=== PATIENT | female | born 1940 | race Caucasian/White ===

== ENCOUNTER 2017-06-19 18:29 | Inpatient (IN) | payer OTHER, MEDICAID ==
[~2017-06-19] VITALS: Ht 175.3 cm; Wt 83.9 kg
[2017-06-19] MEDS ORDERED: RIVA20TA PO (19:58)
[2017-06-19] MEDS ORDERED: TRAM-47 PO (19:58)
[2017-06-19] MEDS ORDERED: ATOR10TA PO (19:58)
[2017-06-19] MEDS ORDERED: SPIR25TA PO (19:58)
[2017-06-19] MEDS ORDERED: ASPI325T14 PO (19:58)
[2017-06-19] MEDS ORDERED: FURO-80 PO (19:58)
[2017-06-19] MEDS ORDERED: OLAN10TA9 PO (19:58)
[2017-06-19] MEDS ORDERED: CARV3.12 PO (19:58)
[2017-06-19] MEDS ORDERED: OXYB5TAB PO (19:58)
[2017-06-19] MEDS ORDERED: TIZA4TAB PO (19:58)
[2017-06-19 19:59] VITALS: BP_SYST 112; BP_SYST 143; BP_DIAS 58; BP_DIAS 92
[2017-06-19] MEDS ORDERED: HALDOL PO PRN (21:00)
[2017-06-19] MEDS: ZYPREXA ZYDIS SL SCH (21:43)
[2017-06-19] MEDS: LIPITOR PO SCH (21:43)
[2017-06-19] MEDS: COREG PO SCH (21:44)
[2017-06-20 08:16] VITALS: BP 132/86
[2017-06-20] MEDS: COREG PO SCH ×2 (09:48→20:29)
[2017-06-20] MEDS: ASPIRIN PO SCH (09:48)
[2017-06-20] MEDS: DITROPAN PO SCH ×2 (09:48→20:28)
[2017-06-20] MEDS: PROZAC PO SCH (09:49)
[2017-06-20] MEDS: XARELTO PO SCH (09:49)
[2017-06-20] MEDS: LASIX PO SCH (09:49)
[2017-06-20] MEDS: ULTRAM PO PRN (09:49)
[2017-06-20] MEDS: ALDACTONE PO SCH (09:49)
--- NOTE | 2017-06-20 10:01 | PRM.PN ---
Mood: DEPRESSED, GUARDED Sleep: SLEPT 6.25 HOURS LAST NIGHT Appetite: NORMAL APPETITE, OVERWEIGHT Suidical thoughts: NONE REPORTED Homicidal thoughts: NONE REPORTED Recent stressors: STRESS OF MENTAL ILLNESS Family support: DAUGHTERS Aggressive Behavior: NONE REPORTED Ability to Perform ADL'sc: YES Psychotic sympstoms: NEGATIVE SYMPTOMS, PARANOIA, DELUSIONAL THINKING Manic Symptoms: NONE REPORTED Living situation: LIVES AT HOME WITH 2 DAUGHTERS IN [place], [place] Illicit Drug usec: NONE REPORTED Alcoholo use: NONE REPORTED Tobacco use: NONE REPORTED Family,PT,Surgical,&Current HX: Anxity Symptoms: MODERATE ANXIETY LEVEL Anger/Irritablility: SOME IRRITABILITY Muscle Strength & Tone: WNL Gait & Station: WNL Appearance: Well groomed/hygience, Casual attire, Overweight Attitude & Behaviour: Poor eye contact, Psychomotor retardation Mood & Affect: Flat, Constricted, Blunted, Depressed Orientation: Disoriented to place, Disoriented to time, Disoriented to situation Attention/Concentration: Poor attention, Poor concentration Speech: Impaired Judgement/Insight: Poor judgement, Poor insight Thought Process: Loose, Tangential Language: Ivorian Thought content/Abnormal/Psych: A/V White, Delusions Fund of Knowledge: Other Associations: KEON Memory (recent and remote): Recent memory repaired, Remote memory repaired Constitutional: None Neurological: None Psychiatric: Depressed, Anxious, Psychosis [place] I: SCHIZOPHRENIA; ANXIETY; DEPRESSION [place] II: DEFERRED [place] III: REFER TO PMH/MEDICAL CHART [place] IV: STRESS OF MENTAL ILLNESS [place] V: GAF=25 TO 30 Assessment/Plan Assessment/Plan Assessment/Plan THE PATIENT WAS SEEN BY DR. HERRERA VIA TELEMEDICINE EQUIPMENT (VSEE) ALONG WITH THE TREATMENT TEAM. THE PATIENT'S VITAL SIGNS WERE: TEMP.=97.8, PULSE=79, RESP.= 18, AW=450/86, O2 SAT WAS 94% ON RA. THE PATIENT SLEPT 6.25 HOURS LAST NIGHT. THE PATIENT ATE BREAKFAST THIS MORNING. THE PATIENT HAS NEGATIVE SYMPTOMS. THE PATIENT HAS A DEPRESSED MOOD. THE PATIENT IS A POOR HISTORIAN. THE PATIENT REPORTS THAT SHE "DOES NOT FEEL RIGHT." THE PATIENT HAS A SLOW THOUGHT PROCESS. THE PATIENT HAS NEGATIVE SYMPTOMS. THE PATIENT DENIES AUDITORY OR VISUAL HALLUCINATIONS THIS MORNING. SHE HAS HAD HALLUCINATIONS IN THE PAST. THE PATIENT HAS STRUGGLED WITH PARANOIA AND DELUSIONAL THINKING. ASSESSMENT: SCHIZOPHRENIA, PARANOID TYPE; DEPRESSION; GENERALIZED ANXIETY DISORDER PLAN: 1) CONTINUE BEHAVIORAL HEALTH UNIT MANAGEMENT. 2) CONTINUE CURRENT MEDICATIONS. THE PATIENT AND STAFF WERE AGREEABLE WITH THE PLAN. SUPPORTIVE THERAPY GIVEN. THE PATIENT DENIES SI OR HI. SAFETY PLANS WERE DISCUSSED. Problems: (1) Schizophrenia Status: Chronic ICD Code: F20.9 - Schizophrenia, unspecified SNOMED: 08209419 Patient History: ITZEL HERRERA IV, MD Jun 20, 2017 10:01
--- NOTE | 2017-06-20 12:09 | PSYCH ---
DATE OF SERVICE: 06/19/2017 INITIAL PSYCHIATRIC HISTORY AND PHYSICAL AND ADMISSION NOTE CHIEF COMPLAINT: The patient was brought on emergency retirement for danger of deterioration. HISTORY OF PRESENT ILLNESS: The patient is a 77-year-old female with a long history of schizophrenia. She has also struggled with depression recently. She has been in somewhat of a catatonic state recently per reports. She has not been eating recently. She has had very low energy and motivation. She has not been taking her medications recently. She has had increased negative symptoms with her schizophrenia. She denies current auditory or visual hallucinations. She is guarded and has paranoia. She has odd and delusional thinking. She does admit to not taking her medications properly. She reports that her mood has been depressed. She denies any recent stressors. She lives in [place], [place] with her 2 children. She reports having financial stress. She reports that her sleep is up and down. She has not been eating well recently. She has feelings of guilt. She has a poor concentration level. She has a slow thought process. Her anxiety level is up and down. She denies current suicidal or homicidal ideation. She does report feeling hopeless and helpless. She has negative symptoms as previously stated. She was a poor historian tonight. She answered questions very slowly. PAST PSYCHIATRIC HISTORY: The patient reports she has been admitted to the [facility] at least 17 times in the past. She has been diagnosed with schizophrenia in the past. She has been on multiple psychotropic medications in the past. She denies ever attempting suicide. PAST MEDICAL HISTORY: 1. Cardiovascular disease. 2. Hyperlipidemia. 3. Hypertension. 4. COPD. 5. Hyperactive bladder. 6. Chronic pain issues. CURRENT MEDICATIONS: 1. Aspirin 325 mg p.o. daily. 2. Lipitor 10 mg p.o. at bedtime. 3. Coreg 3.125 mg p.o. b.i.d. 4. Lasix 40 mg p.o. daily. 5. Xarelto 20 mg p.o. daily. 6. Spironolactone 25 mg p.o. daily. 7. Zanaflex 4 mg p.o. t.i.d. p.r.n. muscle spasms. 8. Tramadol 50 mg p.o. q.6 hours p.r.n. pain. 9. Zyprexa 10 mg p.o. at bedtime. 10. Oxybutynin 1 tablet p.o. daily. ALLERGIES: NO KNOWN DRUG ALLERGIES. FAMILY PSYCHIATRIC HISTORY: The patient reports mental health problems run strongly in her family. She reports that her mother, sister, daughter all have severe mental health problems. SOCIAL HISTORY: The patient denies using illicit drugs, tobacco, or alcohol. She reports that she is retired. 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 She lives with her 2 children in [place], [place]. She was not able to give any other social history at this time. OBJECTIVE VITAL SIGNS: Height is 69 inches, weight is 200 pounds, temperature is 99.1, pulse is 83, respirations are 17, blood pressure is 112/58 and O2 saturation is 95% on room air. The patient is having no physical pain or distress at this time. She does have a history of chronic pain issues. REVIEW OF SYSTEMS: CONSTITUTIONAL: No recent changes in weight. No fatigue. No insomnia. NEUROLOGICAL: No tremors. No weakness. No dizziness. PSYCHIATRIC: Positive for anxiety. Positive for depression. Positive for psychosis. No crying spells. No lynda. GASTROINTESTINAL: No nausea, vomiting, diarrhea, or constipation reported. MUSCULOSKELETAL: No abnormal muscle movements. No musculoskeletal pain reported. EXTREMITIES: No swelling or edema. CARDIOVASCULAR: No chest pain or chest palpitations. RESPIRATORY: No shortness of breath. No wheezing or coughing. EXTREMITIES: No swelling or edema. ENDOCRINE: No heat or cold intolerance. Review of systems otherwise negative, reviewed by Dr. Bryant. MENTAL STATUS EXAMINATION: MUSCLE STRENGTH AND TONE: Within normal limits and no recent changes. GAIT AND STATION: Within normal limits and no recent changes. APPEARANCE: Disheveled. Appears stated age. Casual attire. Overweight. ATTITUDE AND BEHAVIOR: Cooperative. Good eye contact. Psychomotor retardation. MOOD AND AFFECT: Mood is depressed. Affect is guarded and dysthymic. ORIENTATION: Oriented to person. Disoriented to place, time, and situation. ATTENTION/CONCENTRATION: Fair attention and fair concentration. SPEECH: Slow rate and low volume. Normal rhythm and prosody. JUDGMENT/INSIGHT: Poor judgment and poor insight. THOUGHT PROCESS: Loose and tangential. LANGUAGE: Jordanian. THOUGHT CONTENT: Negative for suicidal or homicidal ideation. Positive for delusional thinking. Positive for thought blocking. Denies auditory or visual hallucinations. FUND OF KNOWLEDGE: Poor. ASSOCIATIONS: Loose associations. MEMORY: Recent and remote memory are both intact. ASSESSMENT: Schizophrenia, paranoid type; generalized anxiety disorder; depression. TREATMENT PLAN: 1. The patient will be an involuntary admission at the [facility]. The patient will be monitored closely for behaviors. 2. The patient will be started on Prozac 20 mg p.o. daily. The patient will be continued on Zyprexa Zydis 10 mg p.o. at bedtime. She will be placed on Haldol 2 mg p.o. q.6 hours p.r.n. psychosis and Ativan 0.5 mg p.o. q.6 hours p.r.n. anxiety. 3. The patient will be monitored by the general medical doctor for general medical health issues. 4. The patient will be encouraged to participate in all groups and activities. STRENGTHS: Some verbal skills. WEAKNESSES: Chronic mental illness and poor historian. Jose Bryant IV MD DR: /mikayla JOB# [id number]
[2017-06-20] MEDS: ATIVAN PO PRN (12:24)
[2017-06-20] MEDS: LIPITOR PO SCH (20:28)
[2017-06-20] MEDS: ZYPREXA ZYDIS SL SCH (20:28)
[2017-06-20 20:29] VITALS: BP 150/87
[2017-06-21 07:39] VITALS: BP 165/95
[2017-06-21] MEDS: LASIX PO SCH (09:04)
[2017-06-21] MEDS: ASPIRIN PO SCH (09:04)
[2017-06-21] MEDS: PROZAC PO SCH (09:04)
[2017-06-21] MEDS: COREG PO SCH ×2 (09:04→20:33)
[2017-06-21] MEDS: ALDACTONE PO SCH (09:08)
[2017-06-21] MEDS: DITROPAN PO SCH ×2 (09:08→20:33)
[2017-06-21 09:09] LABS: APPEARANCE,URINE CLOUDY (CLEAR); BILIRUBIN,URINE NEGATIVE (NEGATIVE); UA COLOR AMBER (YELLOW); WBC,URINE TNTC WBC/HPF (0-2)
[2017-06-21] MEDS: XARELTO PO SCH (09:37)
[2017-06-21] MEDS: LIPITOR PO SCH (20:33)
[2017-06-21] MEDS: ZYPREXA ZYDIS SL SCH (20:35)
[2017-06-21 20:50] VITALS: BP 134/78
[2017-06-22] MEDS: XARELTO PO SCH (07:35)
[2017-06-22] MEDS: COREG PO SCH ×2 (07:35→20:20)
[2017-06-22] MEDS: DITROPAN PO SCH ×2 (07:35→20:20)
[2017-06-22] MEDS: ALDACTONE PO SCH (07:36)
[2017-06-22] MEDS: ULTRAM PO PRN (07:36)
[2017-06-22] MEDS: ASPIRIN PO SCH (07:36)
[2017-06-22] MEDS: PROZAC PO SCH (07:36)
[2017-06-22] MEDS: LASIX PO SCH (07:36)
[2017-06-22 09:12] VITALS: BP 153/76
[2017-06-22] MEDS: ATIVAN PO PRN (11:36)
[2017-06-22 19:15] VITALS: BP 141/89
[2017-06-22] MEDS: LIPITOR PO SCH (20:21)
[2017-06-22] MEDS: ZYPREXA ZYDIS SL SCH (20:21)
[2017-06-23] MEDS: ASPIRIN PO SCH (07:54)
[2017-06-23] MEDS: ULTRAM PO PRN ×2 (07:54→20:19)
[2017-06-23] MEDS: LASIX PO SCH (07:55)
[2017-06-23] MEDS: PROZAC PO SCH (07:55)
[2017-06-23] MEDS: ALDACTONE PO SCH (07:55)
[2017-06-23] MEDS: XARELTO PO SCH (07:55)
[2017-06-23 07:56] VITALS: BP 123/104
[2017-06-23] MEDS: DITROPAN PO SCH ×2 (07:56→20:15)
[2017-06-23] MEDS: ATIVAN PO PRN (07:56)
[2017-06-23] MEDS: COREG PO SCH ×2 (07:56→20:15)
--- NOTE | 2017-06-23 09:57 | PRM.PN ---
Mood: DEPRESSED, "SAD" Sleep: SLEEPING 6-7 HOURS PER NIGHT Appetite: POOR APPETITE, HAS TO BE PROMPTED AND ENCOUARGED BY STAFF Suidical thoughts: NONE REPORTED Homicidal thoughts: NONE REPORTED Recent stressors: STRESS OF MENTAL ILLNESS Family support: SOME FAMILY SUPPORT Aggressive Behavior: NONE REPORTED Ability to Perform ADL'sc: NEEDS PROMPTING FROM STAFF Psychotic sympstoms: HALLUCINATIONS, PARANOIA, NEGATIVE SYMPTOMS Manic Symptoms: NONE REPORTED Living situation: WAS LIVING WITH HER CHILDREN IN [place], [place] Illicit Drug usec: NONE REPORTED Alcoholo use: NONE REPORTED Tobacco use: NONE REPORTED Family,PT,Surgical,&Current HX: Anxity Symptoms: HIGH ANXIETY LEVEL Anger/Irritablility: SOME IRRITABILITY Muscle Strength & Tone: WNL Gait & Station: WNL Appearance: Appears older, Well groomed/hygience, Casual attire, Overweight Attitude & Behaviour: Uncooperative, Poor eye contact, Psychomotor retardation Mood & Affect: Flat, Constricted, Depressed Orientation: Disoriented to place, Disoriented to time, Disoriented to situation Attention/Concentration: Poor attention, Poor concentration Speech: Impaired Judgement/Insight: Poor judgement, Poor insight Thought Process: Loose, Tangential Language: Wolof Thought content/Abnormal/Psych: A/V White, Delusions Fund of Knowledge: Other Associations: KEON Memory (recent and remote): Recent memory repaired Constitutional: None Psychiatric: Depressed, Anxious, Psychosis [place] I: SCHZIOPHRENIA; DEPRESSION; ANXIETY [place] II: DEFERRED [place] III: REFER TO PMH/MEDICAL CHART [place] IV: STRESS OF MENTAL ILLNESS [place] V: GAF=25 Assessment/Plan Assessment/Plan Assessment/Plan THE PATIENT WAS SEEN BY DR. HERRERA VIA TELEMEDICINE EQUIPMENT (VSEE) ALONG WITH THE TREATMENT TEAM. THE PATIENT'S VITAL SIGNS WERE: FO=315/104, USDGT=575, RESP. =20, TEMP.=98.4, O2 SAT WAS 93% ON RA. THE PATIENT HAS A SLOW THOUGHT PROCESS. THE PATIENT HAS NEGATIVE SYMPTOMS. THE PATIENT PROBABLY HAS AUDITORY HALLUCINATIONS. SHE APPEARS TO BE HAVING AUDITORY HALLUCINATIONS. THE PATIENT HAS A HIGH ANXIETY LEVEL. THE PATIENT DOES NOT LIKE ANSWERING QUESTIONS. THE PATIENT DOES NOT EAT VERY WELL. THE PATIENT HAS TO BE ENCOURAGED TO EAT BY STAFF. THE PATIENT SLEEPS 6-7 HOURS PER NIGHT. THE PATIENT HAS PARANOIA. THE PATIENT HAS BEEN TAKING HER MEDICATIONS. IT SOMETIMES TAKES 30 MINUTES TO GIVE THE PATIENT HER MEDICATIONS. SHE HAS RESPONDED WELL TO PRN ATIVAN. ASSESSMENT: SCHIZOPHRENIA, PARANOID TYPE; DEPRESSION; GENERALIZED ANXIETY DISORDER PLAN: 1) CONTINUE BEHAVIORAL HEALTH MANAGEMENT. 2) START ATIVAN 0.5MG PO TID SCHEDULED. INCREASE ZYPREXA TO 15MG PO QHS. CONTINUE OTHER MEDICATIONS AT CURRENT DOSES. SUPPORTIVE THERAPY GIVEN. THE PATIENT DENIES SI OR HI. SAFETY PLANS WERE DISCUSSED. Problems: (1) Schizophrenia Status: Chronic ICD Code: F20.9 - Schizophrenia, unspecified SNOMED: [id number] Patient History: ITZEL HERRERA IV, MD Jun 23, 2017 09:57
[2017-06-23 13:06] LABS: CALCIUM 9.3 mg/dL (8.4-10.5); CARBON DIOXIDE 24.6 mmol/L (20.0-32)
[2017-06-23 13:07] LABS: MEAN CELL HGB CONCENTRATION 31.8 g/dL (33-37); MEAN CORP VOLUME 94.5 fL (78-100); MEAN PLATELET VOLUME 12.3 fL (7.8-11.0); RED CELL DISTRIBUTION WIDTH 14.4 % (11.5-14.5); WHITE BLOOD CELL 8.1 10^3/uL (4.5-11.0)
[2017-06-23] MEDS: ATIVAN PO SCH ×2 (14:56→20:14)
[2017-06-23] MEDS ORDERED: ZYPREXA ZYDIS ONE (19:15)
[2017-06-23] MEDS ORDERED: CIPRO ONE (19:15)
[2017-06-23 19:30] VITALS: BP 165/101
[2017-06-23] MEDS: LIPITOR PO SCH (20:14)
[2017-06-23] MEDS: CIPRO PO SCH (20:16)
[2017-06-23] MEDS: ZYPREXA ZYDIS SL SCH (20:16)
[2017-06-24] MEDS: ATIVAN PO SCH ×3 (09:00→20:06)
[2017-06-24] MEDS ORDERED: MILK OF MAGNESIA PO STA (09:35)
[2017-06-24] MEDS: CIPRO PO SCH (09:44)
[2017-06-24] MEDS: DITROPAN PO SCH ×2 (09:44→20:07)
[2017-06-24] MEDS: PROZAC PO SCH (09:44)
[2017-06-24] MEDS: ASPIRIN PO SCH (09:44)
[2017-06-24] MEDS: XARELTO PO SCH (09:46)
[2017-06-24 09:47] VITALS: BP 144/90
[2017-06-24] MEDS: LASIX PO SCH (09:49)
[2017-06-24] MEDS: COREG PO SCH ×2 (09:49→20:07)
[2017-06-24] MEDS: ALDACTONE PO SCH (09:53)
[2017-06-24] MEDS: BACTRIM DS PO SCH ×2 (09:56→20:07)
[2017-06-24] MEDS ORDERED: COLACE PO ONE (19:07)
[2017-06-24 20:00] VITALS: BP 150/85
[2017-06-24] MEDS: LIPITOR PO SCH (20:06)
[2017-06-24] MEDS: ZYPREXA ZYDIS SL SCH (20:07)
[2017-06-24] MEDS: COLACE PO SCH (20:08)
--- NOTE | 2017-06-25 06:39 | CNH ---
DATE OF CONSULTATION: 06/21/2017 CONSULTATION/HISTORY AND PHYSICAL REFERRING PHYSICIAN: Dr. Bryant with Psychiatry. REASON FOR CONSULTATION: Medical management of multiple medical problems. HISTORY OF PRESENT ILLNESS: The patient is a 77-year-old woman whose past medical history includes coronary artery disease, hyperlipidemia, hypertension, COPD, chronic pain and hyperactive bladder. She was admitted to the Geropsych unit for concerns with depression with long history of schizophrenia. Upon arrival, her preadmission workup at [facility] was negative for any acute medical issues. She did have a CT which showed some chronic vascular changes consistent with microvascular ischemic changes chronically. Respiratory workup was not significant, except she did have evidence of possible urinary tract infection. She denied any uncontrolled pain or nausea. She appeared to have fairly poor functional status. PAST MEDICAL HISTORY: Includes cardiovascular disease, hyperlipidemia, hypertension, COPD, hyperactive bladder, chronic pain, schizophrenia and depression. PAST SURGICAL HISTORY: She denies any recent surgeries. ALLERGIES: NO KNOWN DRUG ALLERGIES. HOME MEDICATIONS: List includes aspirin 325 mg daily, atorvastatin 10 mg daily, carvedilol 3.125 mg b.i.d., Lasix is 40 mg daily, olanzapine 10 mg at night, oxybutynin 5 mg daily, rivaroxaban 20 mg daily, Aldactone 25 mg daily, tizanidine 4 mg as needed for muscle spasms, tramadol as needed for pain. SOCIAL HISTORY: She denies any use of alcohol, tobacco or illicit drugs. Retired. Lives with family. FAMILY HISTORY: No known early coronary artery disease or diabetes. REVIEW OF SYSTEMS: CARDIAC: She denies chest pain, shortness of breath or dyspnea on exertion. PULMONARY: No cough, sputum production or pleuritic chest pain. GASTROINTESTINAL: No nausea, vomiting, diarrhea or constipation. All else negative in 10 point review of system except as in HPI. PHYSICAL EXAMINATION: VITAL SIGNS: This morning, height 175.2 cm, weight 90.7 kilograms, temperature 98.3, pulse 88, respiratory rate is 20, blood pressure 165/95, O2 saturations 93% on room air. GENERAL: She is alert, in no acute distress at time of exam. HEENT: Pupils equal, round, reactive to light. Sclerae are anicteric. Oropharynx is clear. Mucous membranes are slightly dry. NECK: Supple, no lymphadenopathy. CARDIOVASCULAR: At time of exam was regular rate and rhythm with occasional ectopy. LUNGS: Clear bilaterally. No wheezing. ABDOMEN: Soft. Bowel sounds present, nontender to palpation. EXTREMITIES: No cyanosis, clubbing or significant edema. NEUROLOGIC: Grossly nonfocal. OUTPATIENT LABORATORY DATA: CBC: White count is 5.6, hemoglobin 14.9, platelets 211. Differential: 69% neutrophils, 19% lymphocytes, 8% monocytes. Sodium 139, potassium 3.4, chloride 109, CO2 is 25, BUN is 23, creatinine 0.7, glucose is 100, calcium is 8.4, total bilirubin 0.9, AST is 20, ALT is 16, alkaline phosphatase 64, total protein 6.3 and TSH is 2.27. UA, pH is 5.5, specific gravity is 1.020, 3+ bacteria, otherwise negative acute. IMAGING STUDIES: CT head showed some microvascular ischemic changes, negative acute. ASSESSMENT AND PLAN: The patient is a 77-year-old woman here with most likely advanced coronary artery disease and probably some congestive heart failure, systolic dysfunction based on medication list, chronic pain with also some mild dehydration and urinary tract infection present on admission. 1. We will continue to follow culture results for her urinary tract infection, antibiotics as indicated. 2. Continue cardiovascular medications. 3. She is on factor 10a inhibitor. We will follow clinically. Fall precautions. 4. Encourage oral fluid hydration. Time spent with the patient on 06/21/2017 is 45 minutes. This plan was discussed with the patient. She is her own decision maker. She does understand and concur with plans. Thank you very much for this consult. We will follow with you. Jerman White MD DR: AMINAH/mikayla JOB# [id number]
[2017-06-25 06:45] VITALS: BP 142/67
[2017-06-25] MEDS: LASIX PO SCH (10:16)
[2017-06-25] MEDS: ALDACTONE PO SCH (10:16)
[2017-06-25] MEDS: BACTRIM DS PO SCH ×2 (10:16→20:26)
[2017-06-25] MEDS: COLACE PO SCH ×2 (10:16→20:26)
[2017-06-25] MEDS: PROZAC PO SCH (10:16)
[2017-06-25] MEDS: ATIVAN PO SCH ×3 (10:16→20:27)
[2017-06-25] MEDS: XARELTO PO SCH (10:16)
[2017-06-25] MEDS: DITROPAN PO SCH ×2 (10:16→20:26)
[2017-06-25] MEDS: ASPIRIN PO SCH (10:17)
[2017-06-25] MEDS: COREG PO SCH ×2 (10:17→20:27)
--- NOTE | 2017-06-25 12:39 | PRM.PN ---
Mood: DEPRESSED, GUARDED, NEGATIVE SYMPTOMS Sleep: SLEEPING WELL AT NIGHT Appetite: POOR APPETITE DUE TO PSYCHOTIC SYMPTOMS Suidical thoughts: NONE REPORTED Homicidal thoughts: NONE REPORTED Recent stressors: STRESS OF SEVERE MENTAL HEALTH SYMPTOMS Family support: LIMITED, LIVES WITH TWO SONS Aggressive Behavior: NONE REPORTED Ability to Perform ADL'sc: HAS TO BE PROMPTED BY STAFF Psychotic sympstoms: DELUSIONS, PARANOIA, HALLUCINATIONS, NEGATIVE SYMPTOMS Manic Symptoms: NONE REPORTED Living situation: LIVES AT HOME [place] WITH TWO SONS Illicit Drug usec: NONE REPORTED Alcoholo use: NONE REPORTED Tobacco use: NONE REPORTED Family,PT,Surgical,&Current HX: Anxity Symptoms: HIGH ANXIETY LEVEL Anger/Irritablility: SOME IRRITABILITY Muscle Strength & Tone: WNL Gait & Station: WNL Appearance: Appears older, Casual attire, Overweight Attitude & Behaviour: Uncooperative, Poor eye contact, Psychomotor retardation Mood & Affect: Flat, Constricted, Depressed Orientation: Disoriented to place, Disoriented to time, Disoriented to situation Attention/Concentration: Poor attention, Poor concentration Speech: Impaired Judgement/Insight: Poor judgement, Poor insight Thought Process: Linear/goal directed, Loose, Tangential Language: Qatari Thought content/Abnormal/Psych: A/V White, Delusions Fund of Knowledge: Other Associations: KEON Memory (recent and remote): Recent memory repaired, Remote memory repaired Constitutional: None Neurological: None Psychiatric: Depressed, Anxious, Psychosis [place] I: SCHIZOPHRENIA, PARANOID TYPE; GENERALIZED ANXIETY DISORDER [place] II: DEFERRED [place] III: REFER TO PMH/MEDICAL CHART [place] IV: STRESS OF MENTAL ILLNESS [place] V: GAF=30 Assessment/Plan Assessment/Plan Assessment/Plan THE PATIENT WAS SEEN BY DR. HERRERA VIA TELEMEDICINE EQUIPMENT (VSEE) ALONG WITH THE TREATMENT TEAM. THE PATIENT'S VITAL SIGNS WERE: PULSE=92, FQ=207/67, RESP.= 18, O2 SAT WAS 93% ON RA, TEMP.=98.1. THE PATIENT SLEPT 8 HOURS LAST NIGHT. THE PATIENT HAS A POOR APPETITE. THE PATIENT DID NOT REALLY EAT BREAKFAST THIS MORNING. THE PATIENT REPORTS A HIGH ANXIETY LEVEL. THE PATIENT STRUGGLES WITH DEPRESSION. THE PATIENT DENIES SI OR HI. THE PATIENT HAS A SLOW THOUGHT PROCESS. THE PATIENT HAS THOUGHT BLOCKING. THE PATIENT HAS PARANOIA. THE PATIENT IS PROBABLY HAVING AUDITORY HALLUCINATIONS. THE PATIENT HAS BEEN TAKING HER MEDICATIONS. THE PATIENT HAS BEEN SHOWERING DAILY. THE PATIENT WAS ORIENTED TO THE APPROXIMATE DATE. THE PATIENT KNEW SHE WAS IN THE HOSPITAL. THE PATIENT ANSWER QUESTIONS SLOWLY. SHE HAS A POOR CONCENTRATION LEVEL. ASSESSMENT: SCHIZOPHRENIA, PARANOID TYPE; GENERALIZED ANXIETY DISORDER PLAN: 1) CONTINUE BEHAVIORAL HEALTH MANAGEMENT. 2) INCREASE LORAZEPAM TO 1MG PO TID. CONTINUE OTHER CURRENT MEDICATIONS. STAFF AGREEABLE WITH THE PLAN. SUPPORTIVE THERAPY GIVEN. THE PATIENT WAS ENCOURAGED TO EAT AND TAKE HER MEDICATIONS. THE PATIENT DID NOT VOICE SI OR HI. Problems: (1) Schizophrenia Status: Chronic ICD Code: F20.9 - Schizophrenia, unspecified SNOMED: [id number] Patient History: ITZEL HERRERA IV, MD Jun 25, 2017 12:39
[2017-06-25] MEDS ORDERED: ATIVAN ONE (14:06)
[2017-06-25 19:30] VITALS: BP 126/77
[2017-06-25] MEDS: LIPITOR PO SCH (20:26)
[2017-06-25] MEDS: ZYPREXA ZYDIS SL SCH (20:27)
[2017-06-26 07:34] VITALS: BP 139/60
--- NOTE | 2017-06-26 08:36 | PRM.PN ---
Mood: DEPRESSED, GUARDED AFFECT, NEGATIVE SYMPTOMS Sleep: SLEEPING OK AT NIGHT Appetite: POOR APPETITE, IMPROVING SOME Suidical thoughts: NONE REPORTED Homicidal thoughts: NONE REPORTED Recent stressors: STRESS OF MENTAL ILLNESS Family support: SHE LIVES WITH HER TWO SONS, LIMITED SOCIAL SUPPORT Aggressive Behavior: NONE REPORTED Ability to Perform ADL'sc: NEEDS PROMPTING Psychotic sympstoms: NEGATIVE SYMPTOMS, PARANOIA, DELUSIONS, DENIES HALLUCINATIONS Manic Symptoms: NONE REPORTED Living situation: LIVES WITH TWO SONS Illicit Drug usec: NONE REPORTED Alcoholo use: NONE REPORTED Tobacco use: NONE REPORTED Family,PT,Surgical,&Current HX: Anxity Symptoms: HIGH ANXIETY LEVEL Anger/Irritablility: LIMITED ANGER AND IRRITABILITY Muscle Strength & Tone: WNL Gait & Station: Ataxic Appearance: Appears older, Casual attire, Overweight Attitude & Behaviour: Uncooperative, Poor eye contact, Psychomotor retardation Mood & Affect: Flat, Constricted, Blunted, Depressed Orientation: Disoriented to place, Disoriented to time, Disoriented to situation Attention/Concentration: Poor attention, Poor concentration Speech: Impaired Judgement/Insight: Poor judgement, Poor insight Thought Process: Loose, Tangential Language: Amharic Thought content/Abnormal/Psych: Delusions Fund of Knowledge: Other Associations: KEON Memory (recent and remote): Recent memory repaired, Remote memory repaired Constitutional: None Neurological: None Psychiatric: Depressed, Anxious, Psychosis [place] I: SCHIZOPHRENIA; DEPRESSION; ANXIETY [place] II: DEFERRED [place] III: REFER TO PMH/MEDICAL CHART [place] IV: STRESS OF MENTAL ILLNESS [place] V: GAF=25 TO 30 Assessment/Plan Assessment/Plan Assessment/Plan THE PATIENT WAS SEEN BY DR. HERRERA FACE TO FACE ALONG WITH THE TREATMENT TEAM. THE PATIENT'S VITAL SIGNS WERE: BN=649/60, PULSE=92, RESP.=16, TEMP.=98.5, O2 SAT WAS 94% ON RA. THE PATIENT SLEPT 8.5 HOURS LAST NIGHT. THE PATIENT HAS IMPROVED HOW MUCH SHE IS EATING. SHE HAS A POOR APPETITE IN GENERAL. SHE HAS SHOWN SOME IMPROVEMENT IN HER FUNCTIONING. THE PATIENT STRUGGLES WITH PARANOIA. THE PATIENT HAS A SLOW THOUGHT PROCESS. THE PATIENT HAS ODD AND DELUSIONAL THINKING. THE PATIENT HAS BEEN TAKING HER MEDICATIONS. THE PATIENT HAS THOUGHT BLOCKING. SHE DENIES AUDITORY HALLUCINATIONS, BUT SHE IS LIKELY HAVING HALLUCINATIONS. SHE HAS A FLAT AFFECT. SHE IS NOT CURRENTLY ABLE TO CARE FOR HERSELF. SHE NEEDS HELP WALKING. SHE HAS TO BE PROMPTED TO EAT AND SHOWER. SHE HAS SEVERE PSYCHOSIS THAT CURRENTLY IS NOT CONTROLLED. ASSESSMENT: SCHIZOPHRENIA, PARANOID TYPE; GENERALIZED ANXIETY DISORDER; DEPRESSION PLAN: 1) CONTINUE BEHAVIORAL HEALTH MANAGEMENT. 2) CONTINUE CURRENT MEDICATIONS. THE PATIENT AND STAFF WERE AGREEABLE WITH THE PLAN. SUPPORTIVE THERAPY GIVEN. THE PATIENT DENIES SI OR HI. SAFETY PLANS WERE DISCUSSED. Problems: (1) Schizophrenia Status: Chronic ICD Code: F20.9 - Schizophrenia, unspecified SNOMED: [id number] Patient History: ITZEL HERRERA IV, MD Jun 26, 2017 08:36
[2017-06-26] MEDS: BACTRIM DS PO SCH ×2 (08:57→20:26)
[2017-06-26] MEDS: PROZAC PO SCH (08:57)
[2017-06-26] MEDS: DITROPAN PO SCH ×2 (08:57→20:28)
[2017-06-26] MEDS: LASIX PO SCH (08:57)
[2017-06-26] MEDS: COREG PO SCH ×2 (08:57→20:28)
[2017-06-26] MEDS: ASPIRIN PO SCH (08:57)
[2017-06-26] MEDS: COLACE PO SCH ×2 (08:57→20:29)
[2017-06-26] MEDS: XARELTO PO SCH (08:57)
[2017-06-26] MEDS: ALDACTONE PO SCH (08:58)
[2017-06-26] MEDS: ULTRAM PO PRN (08:58)
[2017-06-26] MEDS: ATIVAN PO SCH ×3 (08:58→20:27)
[2017-06-26 19:37] VITALS: BP 122/64
[2017-06-26] MEDS: LIPITOR PO SCH (20:27)
[2017-06-26] MEDS: ZYPREXA ZYDIS SL SCH (20:27)
[2017-06-27 08:05] VITALS: BP 117/55
--- NOTE | 2017-06-27 08:35 | PRM.PN ---
Mood: DEPRESSED, GUARDED, NEGATIVE SYMPTOMS Sleep: SLEPT 6.5 HOURS LAST NIGHT Appetite: POOR APPETITE, ATE 50% OF HER BREALFAST THIS MORNING Suidical thoughts: NONE REPORTED Homicidal thoughts: NONE REPORTED Recent stressors: STRESS OF MENTAL ILLNESS Family support: LIMITED, SHE WAS LIVING WITH HER TWO SONS Aggressive Behavior: NONE REPORTED Ability to Perform ADL'sc: NEEDS PROMPTING AND ASSISTANCE Psychotic sympstoms: PARANOIA, HALLUCINATIONS, THOUGHT BLOCKING Manic Symptoms: NONE REPORTED Living situation: WAS LIVING IN [place], [place] WITH HER TWO SONS Illicit Drug usec: NONE REPORTED Alcoholo use: NONE REPORTED Tobacco use: NONE REPORTED Family,PT,Surgical,&Current HX: Anxity Symptoms: HIGH ANXIETY LEVEL Anger/Irritablility: LIMITED ANGER AND IRRITABILITY Muscle Strength & Tone: WNL Gait & Station: Ataxic Appearance: Well groomed/hygience, Casual attire, Appears age stated, Overweight Attitude & Behaviour: Cooperative/Pleasant, Poor eye contact, Psychomotor retardation Mood & Affect: Flat, Constricted, Blunted, Depressed Orientation: Disoriented to place, Disoriented to time, Disoriented to situation Attention/Concentration: Fair attention, Poor concentration Speech: Impaired Judgement/Insight: Poor judgement, Poor insight Thought Process: Loose, Tangential Language: Trinidadian Thought content/Abnormal/Psych: A/V White, Delusions Fund of Knowledge: Other Associations: KEON Memory (recent and remote): Recent memory repaired, Remote memory repaired Constitutional: None Neurological: None Psychiatric: Depressed, Anxious, Psychosis [place] I: SCHIOZPHRENIA, PARANOID TYPE; GENERALIZED ANXIETY DISORDER [place] II: DEFERRED [place] III: REFER TO PMH/MEDICAL CHART [place] IV: STRESS OF MENTAL ILLNESS [place] V: GAF=25 Assessment/Plan Assessment/Plan Assessment/Plan THE PATIENT WAS SEEN BY DR. HERRERA VIA TELEMEDICINE EQUIPMENT (VSEE) ALONG WITH THE TREATMENT TEAM. THE PATIENT'S VITAL SIGNS WERE: TEMP.=98.3, PULSE=62, RESP.= 16, II=101/55, O2 SAT WAS 93% ON RA. THE PATIENT IS AN INVOLUNTARY ADMISSION FOR POORLY CONTROLLED SCHIZOPHRENIA. THE PATIENT STRUGGLES WITH PARANOIA. THE PATIENT WORRIES THAT "SOMETHING BAD IS GOING TO HAPPEN." SHE HAS BEEN EATING POORLY OVERALL. SHE HAS THOUGHT BLOCKING AND POOR CONCENTRATION. SHE IS NOT ABLE TO CARE FOR HERSELF PROPERLY DUE TO HER SEVERE PSYCHOTIC SYMPTOMS. SHE PROBABLY HAS AUDITORY AND VISUAL HALLUCINATIONS. SHE TENDS TO DOWNPLAY THE SIGNIFICANCE OF HER PSYCHOTIC SYMPTOMS. SHE ANSWER QUESTIONS VERY SLOWLY. SHE REPORTS HER MOOD IS DEPRESSED. SHE HAS IMPROVED SOME SINCE COMING IN THE HOSPITAL. SHE WAS ANSWERING QUESTIONS BETTER TODAY THAN SHE WAS YESTERDAY. SHE IS EATING BETTER PER STAFF. THE PATIENT HAS A POOR CONCENTRATION LEVEL. ASSESSMENT: SCHIZOPHRENIA, PARANOID TYPE; GENERALIZED ANXIETY DISORDER PLAN: 1) CONTINUE BEHAVIORAL HEALTH MANAGEMENT. 2) CONTINUE CURRENT MEDICATIONS. STAFF WAS AGREEABLE WITH THE PLAN. SUPPORTIVE THERAPY GIVEN. THE PATIENT DENIES SI OR HI. SAFETY PLANS WERE DISCUSSED. Problems: (1) Schizophrenia Status: Chronic ICD Code: F20.9 - Schizophrenia, unspecified SNOMED: 61863561 Patient History: ITZEL HERRERA IV, MD Jun 27, 2017 08:35
[2017-06-27] MEDS: DITROPAN PO SCH ×2 (08:42→20:25)
[2017-06-27] MEDS: ASPIRIN PO SCH (08:42)
[2017-06-27] MEDS: PROZAC PO SCH (08:42)
[2017-06-27] MEDS: COLACE PO SCH ×2 (08:42→20:26)
[2017-06-27] MEDS: BACTRIM DS PO SCH ×2 (08:42→20:26)
[2017-06-27] MEDS: LASIX PO SCH (08:43)
[2017-06-27] MEDS: COREG PO SCH ×2 (08:43→20:26)
[2017-06-27] MEDS: ATIVAN PO SCH ×3 (08:44→20:25)
[2017-06-27] MEDS: ALDACTONE PO SCH (08:46)
[2017-06-27] MEDS: XARELTO PO SCH (08:47)
[2017-06-27 19:33] VITALS: BP 109/64
[2017-06-27] MEDS: LIPITOR PO SCH (20:25)
[2017-06-27] MEDS: ZYPREXA ZYDIS SL SCH (20:26)
[2017-06-28 07:02] VITALS: BP 144/86
[2017-06-28] MEDS: COREG PO SCH ×2 (08:54→20:12)
[2017-06-28] MEDS: BACTRIM DS PO SCH ×2 (08:54→20:14)
[2017-06-28] MEDS: ULTRAM PO PRN (08:54)
[2017-06-28] MEDS: COLACE PO SCH ×2 (08:55→20:12)
[2017-06-28] MEDS: PROZAC PO SCH (08:55)
[2017-06-28] MEDS: ALDACTONE PO SCH (08:55)
[2017-06-28] MEDS: XARELTO PO SCH (08:55)
[2017-06-28] MEDS: DITROPAN PO SCH ×2 (08:55→20:14)
[2017-06-28] MEDS: ASPIRIN PO SCH (08:55)
[2017-06-28] MEDS: ATIVAN PO SCH ×3 (08:55→20:14)
[2017-06-28] MEDS: LASIX PO SCH (08:55)
[2017-06-28] MEDS ORDERED: ARTIFICIAL TEARS BOTH EYES PRN (11:30)
--- NOTE | 2017-06-28 15:36 | PRM.PN ---
Mood: DEPRESSED, GUARDED Sleep: SLEEPING OK AT NIGHT (8 HOURS LAST NIGHT) Appetite: POOR APPETITE, STAFF HAVE TO PROMPT HER TO EAT Suidical thoughts: NONE REPORTED Homicidal thoughts: NONE REPORTED Recent stressors: STRESS OF MENTAL ILLNESS Family support: LIMITED, LIVES WITH TWO SONS Aggressive Behavior: NONE REPORTED Ability to Perform ADL'sc: NEEDS ASSISTANCE AND PROMPTING Psychotic sympstoms: DELUSIONS, PARANOIA, HALLUCINATIONS, NEGATIVE SYMPTOMS Manic Symptoms: NONE REPORTED Living situation: WAS LIVING IN [place], [place] WITH TWO SONS Illicit Drug usec: NONE REPORTED Alcoholo use: NONE REPORTED Tobacco use: NONE REPORTED Family,PT,Surgical,&Current HX: Anxity Symptoms: MODERATE ANXIETY LEVEL Anger/Irritablility: LIMITED ANGER AND IRRITABILITY Muscle Strength & Tone: WNL Gait & Station: Ataxic Appearance: Well groomed/hygience, Casual attire, Appears age stated, Overweight Attitude & Behaviour: Cooperative/Pleasant, Good eye contact, Psychomotor retardation Mood & Affect: Flat, Constricted, Blunted, Depressed Orientation: Disoriented to place, Disoriented to time, Disoriented to situation Attention/Concentration: Fair attention, Fair concentration Speech: Impaired Judgement/Insight: Poor judgement, Poor insight Thought Process: Linear/goal directed, Loose, Tangential Language: Yemeni Thought content/Abnormal/Psych: A/V White, Delusions Fund of Knowledge: Other Associations: KEON Memory (recent and remote): Recent memory repaired, Remote memory repaired Constitutional: None Neurological: None Psychiatric: Depressed, Anxious, Psychosis [place] I: SCHIZOPHRENIA; GENERALIZED ANXIETY DISORDER [place] II: DEFERRED [place] III: REFER TO PMH/MEDICAL CHART [place] IV: STRESS OF MENTAL ILLNESS, PHYSICAL PAIN [place] V: GAF=30 Assessment/Plan Assessment/Plan Assessment/Plan THE PATIENT WAS SEEN BY DR. HERRERA VIA TELEMEDICINE EQUIPMENT (VSEE) ALONG WITH NURSING STAFF. THE PATIENT'S VITAL SIGNS WERE: RS=289/86, PULSE=86, RESP.=18, O2 SAT WAS 95% ON RA, TEMP.=98.1. THE PATIENT SLEPT 8 HOURS LAST NIGHT. THE PATIENT HAS TO BE PROMPTED AND ENCOURAGED TO EAT. HER APPETITE HAS IMPROVED SOME SINCE STARTING THE PROGRAM. THE PATIENT HAS NEGATIVE SYMPTOMS. THE PATIENT ANSWERS QUESTIONS SLOWLY. THE PATIENT HAS THOUGHT BLOCKING. THE PATIENT HAS PARANOIA. SHE FEEL LIKE SOMETHING BAD IS GOING TO HAPPEN TO HER. THE PATIENT KNEW [facility] WAS COMING UP ON SATURDAY. THE PATIENT WAS DISORIENTED TO EXACT TIME, PLACE, AND SITUATION. THE PATIENT HAS BEEN EATING BETTER. THE PATIENT HAS BEEN EATING SNACKS. THE PATIENT WAS ANSWERING QUESTIONS TODAY BETTER THAN YESTERDAY. THE PATIENT IS LESS ANXIOUS ON THE ATIVAN. SHE IS NOT OVER-SEDATED FROM HER MEDICATIONS. ASSESSMENT: SCHIZOPHRENIA, PARANOID TYPE (F20.0); GENERALIZED ANXIETY DISORDER PLAN: 1) CONTINUE BEHAVIORAL HEALTH MANAGEMENT. 2) CONTINUE CURRENT MEDICATIONS. STAFF AGREEABLE WITH THE PLAN. SUPPORTIVE THERAPY GIVEN. THE PATIENT DENIES SI OR HI. Problems: (1) Schizophrenia Status: Chronic ICD Code: F20.9 - Schizophrenia, unspecified SNOMED: [id number] Patient History: ITZEL HERRERA IV, MD Jun 28, 2017 15:36
[2017-06-28] MEDS ORDERED: PEPCID ONE (19:09)
[2017-06-28 19:27] VITALS: BP 117/49
[2017-06-28] MEDS: LIPITOR PO SCH (20:14)
[2017-06-28] MEDS: ZYPREXA ZYDIS SL SCH (20:14)
[2017-06-28] MEDS: PEPCID PO SCH (20:20)
[2017-06-29 06:57] VITALS: BP 139/84
[2017-06-29] MEDS: LASIX PO SCH (08:37)
[2017-06-29] MEDS: XARELTO PO SCH (08:38)
[2017-06-29] MEDS: PEPCID PO SCH ×2 (08:38→20:06)
[2017-06-29] MEDS: COREG PO SCH ×2 (08:38→20:05)
[2017-06-29] MEDS: PROZAC PO SCH (08:38)
[2017-06-29] MEDS: ALDACTONE PO SCH (08:38)
[2017-06-29] MEDS: ASPIRIN PO SCH (08:38)
[2017-06-29] MEDS: COLACE PO SCH ×2 (08:38→20:06)
[2017-06-29] MEDS: BACTRIM DS PO SCH ×2 (08:38→20:05)
[2017-06-29] MEDS: DITROPAN PO SCH ×2 (08:38→20:06)
[2017-06-29] MEDS: ATIVAN PO SCH ×3 (08:38→20:05)
[2017-06-29 19:10] VITALS: BP 110/70
[2017-06-29] MEDS: ZYPREXA ZYDIS SL SCH (20:05)
[2017-06-29] MEDS: LIPITOR PO SCH (20:06)
[2017-06-30 07:16] VITALS: BP 112/55
[2017-06-30] MEDS: PROZAC PO SCH (09:05)
[2017-06-30] MEDS: ALDACTONE PO SCH (09:05)
[2017-06-30] MEDS: ASPIRIN PO SCH (09:05)
[2017-06-30] MEDS: COLACE PO SCH ×2 (09:05→20:10)
[2017-06-30] MEDS: BACTRIM DS PO SCH ×2 (09:05→20:08)
[2017-06-30] MEDS: COREG PO SCH ×2 (09:06→20:10)
[2017-06-30] MEDS: ATIVAN PO SCH ×3 (09:06→20:08)
[2017-06-30] MEDS: DITROPAN PO SCH ×2 (09:06→20:08)
[2017-06-30] MEDS: PEPCID PO SCH ×2 (09:06→20:09)
[2017-06-30] MEDS: XARELTO PO SCH (09:06)
[2017-06-30] MEDS: LASIX PO SCH (09:06)
[2017-06-30] MEDS: ULTRAM PO PRN (12:08)
[2017-06-30 19:10] VITALS: BP 110/55
[2017-06-30] MEDS: LIPITOR PO SCH (20:09)
[2017-06-30] MEDS: ZYPREXA ZYDIS SL SCH (20:11)
[2017-07-01 07:30] VITALS: BP 136/64
[2017-07-01] MEDS: PROZAC PO SCH (08:19)
[2017-07-01] MEDS: COLACE PO SCH ×2 (08:19→20:26)
[2017-07-01] MEDS: ALDACTONE PO SCH (08:19)
[2017-07-01] MEDS: DITROPAN PO SCH ×2 (08:19→20:26)
[2017-07-01] MEDS: LASIX PO SCH (08:19)
[2017-07-01] MEDS: COREG PO SCH ×2 (08:19→20:26)
[2017-07-01] MEDS: ASPIRIN PO SCH (08:19)
[2017-07-01] MEDS: ZANAFLEX PO PRN (08:19)
[2017-07-01] MEDS: XARELTO PO SCH (08:20)
[2017-07-01] MEDS: BACTRIM DS PO SCH ×2 (08:20→20:26)
[2017-07-01] MEDS: PEPCID PO SCH ×2 (08:20→20:26)
[2017-07-01] MEDS: ATIVAN PO SCH ×3 (08:20→20:25)
[2017-07-01 19:42] VITALS: BP 119/72
[2017-07-01] MEDS: ZYPREXA ZYDIS SL SCH (20:25)
[2017-07-01] MEDS: LIPITOR PO SCH (20:25)
--- NOTE | 2017-07-02 04:05 | PNH ---
DATE: 07/01/2017 PSYCHIATRIC PROGRESS NOTE TIME: 2:40-3:00 HISTORY OF PRESENT ILLNESS: The patient is a 77-year-old female with a long history of schizophrenia. The patient also has depressive symptoms and a catatonic state prior to admission. Not eating, low energy, no motivation, all symptoms consistent with schizophrenia with auditory hallucinations, ideas of reference, thought broadcasting and insertion and paranoia. The patient today is showing some improvement, although continues to have psychotic symptoms and depressive symptoms and is a candidate for ongoing hospitalization. OBJECTIVE: VITAL SIGNS: Temperature 98, pulse 77, respirations 16, oxygen saturation 94% and blood pressure 136/64. REVIEW OF SYSTEMS: HEENT: Normal. RESPIRATORY: No shortness of breath, coughing, or wheezing. CARDIAC: No chest pain or palpitations. GASTROINTESTINAL: No nausea, vomiting, diarrhea or constipation. GENITOURINARY: No difficulty with urination. EXTREMITIES: No swelling or edema. MUSCULOSKELETAL: No muscle pain. NEUROLOGIC: Normal. ENDOCRINE: Normal. MENTAL STATUS EXAMINATION: Reveals an alert female. Decreased psychomotor activity. Concentration and memory decreased. Speech and language are normal. Orientation full. Intelligence is average. Mood assessed as depressed. Affect constricted. Insight and judgment are poor. Thought is illogical, positive delusional thought. ASSESSMENT AND PLAN: DIAGNOSES: AXIS I: 1. Schizophrenia: 2. Major depressive disorder. AXIS II: Deferred. AXIS III: Refer to past medical history. AXIS IV: Stress of mental illness. AXIS V: Current global assessment of functioning 20. TREATMENT PLAN: 1. This patient was admitted involuntarily to [facility] and is being observed closely. 2. She has been placed on medications, specifically Ativan 1 mg 3 times a day for severe anxiety, Zyprexa 15 mg a day for psychosis, Prozac 20 mg a day for depression. 3. She is participating in groups, therapies and activities. 4. This patient will be discharged back to an outpatient [facility]pc situation when she represents no risk of danger to herself or others. Piotr Scanlon MD DR: JAMAL/mikayla JOB# [id number]
[2017-07-02] MEDS: DITROPAN PO SCH ×2 (08:36→20:09)
[2017-07-02] MEDS: COLACE PO SCH ×2 (08:36→20:07)
[2017-07-02] MEDS: ALDACTONE PO SCH (08:36)
[2017-07-02] MEDS: COREG PO SCH ×2 (08:36→20:10)
[2017-07-02] MEDS: BACTRIM DS PO SCH ×2 (08:36→20:07)
[2017-07-02] MEDS: LASIX PO SCH (08:36)
[2017-07-02] MEDS: PEPCID PO SCH ×2 (08:36→20:07)
[2017-07-02] MEDS: ASPIRIN PO SCH (08:36)
[2017-07-02] MEDS: ZANAFLEX PO PRN (08:36)
[2017-07-02] MEDS: XARELTO PO SCH (08:37)
[2017-07-02] MEDS: PROZAC PO SCH (08:37)
[2017-07-02] MEDS: ATIVAN PO SCH ×3 (08:37→20:08)
[2017-07-02 08:43] VITALS: BP 165/96
[2017-07-02 19:30] VITALS: BP 134/72
[2017-07-02] MEDS: ULTRAM PO PRN (20:08)
[2017-07-02] MEDS: LIPITOR PO SCH (20:09)
[2017-07-02] MEDS: ZYPREXA ZYDIS SL SCH (20:10)
[2017-07-03 07:31] VITALS: BP 145/88
[2017-07-03] MEDS: DITROPAN PO SCH ×2 (09:32→20:19)
[2017-07-03] MEDS: ZANAFLEX PO PRN (09:32)
[2017-07-03] MEDS: ASPIRIN PO SCH (09:32)
[2017-07-03] MEDS: COREG PO SCH ×2 (09:32→20:19)
[2017-07-03] MEDS: COLACE PO SCH ×2 (09:32→20:18)
[2017-07-03] MEDS: BACTRIM DS PO SCH ×2 (09:33→20:18)
[2017-07-03] MEDS: LASIX PO SCH (09:33)
[2017-07-03] MEDS: ALDACTONE PO SCH (09:33)
[2017-07-03] MEDS: PROZAC PO SCH (09:33)
[2017-07-03] MEDS: ATIVAN PO SCH ×3 (09:33→20:18)
[2017-07-03] MEDS: XARELTO PO SCH (09:33)
[2017-07-03] MEDS: PEPCID PO SCH ×2 (09:34→20:19)
--- NOTE | 2017-07-03 12:50 | PNH ---
DATE: 07/03/2017 PSYCHIATRIC PROGRESS NOTE TIME: 8:40-9:00. HISTORY OF PRESENT ILLNESS: The patient is a 77-year-old female with a long history of schizophrenia. The patient also has a history of major depression, presented in a catatonic state with active psychotic symptoms with auditory hallucinations, delusional thought, paranoia, ideas of reference. Was mute for a period of time, apparently not taking her medications appropriately. Depression with depressed mood, disturbed sleep, appetite, energy and concentration. The patient is showing improvement; however, having some sedation with her medication and therefore medication changes were indicated. Today, she is a candidate for ongoing hospitalization currently. OBJECTIVE: VITAL SIGNS: Blood pressure 145/81, pulse 90, respirations 20, temperature 98, oxygen saturation 95%. REVIEW OF SYSTEMS: HEENT: Normal. RESPIRATORY: No shortness of breath, coughing, or wheezing. CARDIAC: No chest pain or palpitations. GASTROINTESTINAL: No nausea, vomiting, diarrhea or constipation. GENITOURINARY: No difficulty with urination. EXTREMITIES: No swelling or edema. MUSCULOSKELETAL: Positive muscle pain. NEUROLOGIC: Normal. ENDOCRINE: Normal. MENTAL STATUS EXAMINATION: Reveals an alert female. Decreased psychomotor activity. Concentration and memory intact. Speech and language are normal. Orientation full. Intelligence is average. Mood assessed as depressed. Affect constricted. Insight and judgment are poor. Thought is illogical, positive delusional thought. ASSESSMENT AND PLAN: DIAGNOSES: AXIS I: 1. Schizophrenia. 2. Major depressive disorder. AXIS II: Deferred. AXIS III: Refer to past medical history. TREATMENT PLAN: 1. This patient was admitted to the [facility] representing a danger or risk to herself and is being observed closely. 2. She has been placed on medications, specifically Ativan reduced to 0.5 mg 3 times a day due to sedation today, Zyprexa 15 mg a day and Prozac 20 mg a day. 3. She is participating in all groups, therapies and activities. 4. The patient will be discharged to an outpatient setting when it is felt she no longer represents any risk or danger to herself. Piotr Scanlon MD DR: JAMAL/mikayla JOB# [id number]
[2017-07-03 19:20] VITALS: BP 113/65
[2017-07-03] MEDS: LIPITOR PO SCH (20:19)
[2017-07-03] MEDS: ZYPREXA ZYDIS SL SCH (20:19)
[2017-07-04 07:19] VITALS: BP 136/61
[2017-07-04] MEDS: ZANAFLEX PO PRN ×2 (08:22→20:12)
[2017-07-04] MEDS: ALDACTONE PO SCH (08:22)
[2017-07-04] MEDS: BACTRIM DS PO SCH ×2 (08:22→20:11)
[2017-07-04] MEDS: COREG PO SCH ×2 (08:23→20:12)
[2017-07-04] MEDS: PEPCID PO SCH ×2 (08:23→20:11)
[2017-07-04] MEDS: XARELTO PO SCH (08:23)
[2017-07-04] MEDS: ASPIRIN PO SCH (08:23)
[2017-07-04] MEDS: PROZAC PO SCH (08:23)
[2017-07-04] MEDS: DITROPAN PO SCH ×2 (08:23→20:12)
[2017-07-04] MEDS: COLACE PO SCH ×2 (08:24→20:12)
[2017-07-04] MEDS: LASIX PO SCH (08:24)
[2017-07-04] MEDS: ATIVAN PO SCH ×3 (08:24→20:11)
[2017-07-04 19:03] VITALS: BP 144/79
[2017-07-04] MEDS: ZYPREXA ZYDIS SL SCH (20:11)
[2017-07-04] MEDS: LIPITOR PO SCH (20:11)
[2017-07-05 07:43] VITALS: BP 134/82
[2017-07-05] MEDS: PEPCID PO SCH ×2 (08:23→21:29)
[2017-07-05] MEDS: COLACE PO SCH ×2 (08:23→21:30)
[2017-07-05] MEDS: ASPIRIN PO SCH (08:23)
[2017-07-05] MEDS: COREG PO SCH ×2 (08:23→21:31)
[2017-07-05] MEDS: PROZAC PO SCH (08:23)
[2017-07-05] MEDS: XARELTO PO SCH (08:26)
[2017-07-05] MEDS: ALDACTONE PO SCH (08:27)
[2017-07-05] MEDS: BACTRIM DS PO SCH (08:27)
[2017-07-05] MEDS: DITROPAN PO SCH ×2 (08:27→21:30)
[2017-07-05] MEDS: LASIX PO SCH (08:34)
[2017-07-05] MEDS: ATIVAN PO SCH ×3 (08:34→21:30)
[2017-07-05 19:41] VITALS: BP 127/67
[2017-07-05] MEDS ORDERED: COLACE PO ONE (20:24)
[2017-07-05] MEDS ORDERED: PEPCID ONE (20:25)
[2017-07-05] MEDS ORDERED: DITROPAN ONE (20:25)
[2017-07-05] MEDS ORDERED: COREG ONE (20:25)
[2017-07-05] MEDS ORDERED: ZYPREXA ZYDIS ONE (20:26)
[2017-07-05] MEDS ORDERED: LIPITOR ONE (20:26)
[2017-07-05] MEDS ORDERED: ATIVAN ONE (20:27)
[2017-07-05] MEDS: LIPITOR PO SCH (21:29)
[2017-07-05] MEDS: ZYPREXA ZYDIS SL SCH (21:31)
[2017-07-06] MEDS ORDERED: COLACE PO ONE ×2 (06:29→19:51)
[2017-07-06] MEDS ORDERED: ASPIRIN ONE (06:30)
[2017-07-06] MEDS ORDERED: DITROPAN ONE ×2 (06:30→19:51)
[2017-07-06] MEDS ORDERED: ALDACTONE ONE ×2 (06:30→06:33)
[2017-07-06] MEDS ORDERED: PROZAC ONE (06:30)
[2017-07-06] MEDS ORDERED: COREG ONE ×2 (06:30→19:51)
[2017-07-06] MEDS ORDERED: PEPCID ONE ×2 (06:31→19:52)
[2017-07-06] MEDS ORDERED: XARELTO ONE (06:31)
[2017-07-06] MEDS ORDERED: LASIX ONE (06:31)
[2017-07-06] MEDS ORDERED: ATIVAN ONE ×3 (06:31→19:53)
[2017-07-06 07:27] VITALS: BP 141/87
[2017-07-06] MEDS: DITROPAN PO SCH ×2 (07:32→20:57)
[2017-07-06] MEDS: XARELTO PO SCH (07:32)
[2017-07-06] MEDS: PEPCID PO SCH ×2 (07:33→20:56)
[2017-07-06] MEDS: PROZAC PO SCH (07:33)
[2017-07-06] MEDS: ASPIRIN PO SCH (07:33)
[2017-07-06] MEDS: COLACE PO SCH ×2 (07:33→20:57)
[2017-07-06] MEDS: LASIX PO SCH (07:33)
[2017-07-06] MEDS: COREG PO SCH ×2 (07:33→20:57)
[2017-07-06] MEDS: ATIVAN PO SCH ×3 (07:33→20:56)
[2017-07-06] MEDS: ALDACTONE PO SCH (07:34)
[2017-07-06] MEDS ORDERED: ULTRAM ONE (13:25)
[2017-07-06] MEDS: ULTRAM PO PRN (14:27)
[2017-07-06 19:34] VITALS: BP 125/65
[2017-07-06] MEDS ORDERED: ZYPREXA ZYDIS ONE (19:52)
[2017-07-06] MEDS ORDERED: LIPITOR ONE (19:52)
[2017-07-06] MEDS: LIPITOR PO SCH (20:55)
[2017-07-06] MEDS: ZYPREXA ZYDIS SL SCH (20:57)
[2017-07-07] MEDS ORDERED: COREG ONE ×2 (07:09→19:28)
[2017-07-07] MEDS ORDERED: PROZAC ONE (07:09)
[2017-07-07] MEDS ORDERED: COLACE PO ONE ×2 (07:09→19:27)
[2017-07-07] MEDS ORDERED: ASPIRIN EC PO ONE (07:09)
[2017-07-07] MEDS ORDERED: DITROPAN ONE ×3 (07:09→19:32)
[2017-07-07] MEDS ORDERED: PEPCID ONE ×2 (07:10→19:28)
[2017-07-07] MEDS ORDERED: XARELTO ONE (07:10)
[2017-07-07] MEDS ORDERED: ATIVAN ONE ×3 (07:10→19:29)
[2017-07-07] MEDS ORDERED: LASIX ONE (07:10)
[2017-07-07] MEDS ORDERED: ULTRAM ONE (07:11)
[2017-07-07 08:00] VITALS: BP 143/91
[2017-07-07] MEDS: ATIVAN PO SCH ×3 (08:12→20:31)
[2017-07-07] MEDS: COLACE PO SCH ×2 (08:12→20:31)
[2017-07-07] MEDS: XARELTO PO SCH (08:12)
[2017-07-07] MEDS: PEPCID PO SCH ×2 (08:12→20:32)
[2017-07-07] MEDS: DITROPAN PO SCH ×2 (08:12→20:33)
[2017-07-07] MEDS: PROZAC PO SCH (08:12)
[2017-07-07] MEDS: ULTRAM PO PRN (08:12)
[2017-07-07] MEDS: ASPIRIN PO SCH (08:12)
[2017-07-07] MEDS: LASIX PO SCH (08:13)
[2017-07-07] MEDS: COREG PO SCH ×2 (08:14→20:32)
[2017-07-07] MEDS ORDERED: ALDACTONE ONE (09:25)
[2017-07-07] MEDS: ALDACTONE PO SCH (10:33)
[2017-07-07] MEDS ORDERED: TUMS ONE (16:36)
[2017-07-07 16:43] VITALS: BP 125/69
[2017-07-07] MEDS ORDERED: TUMS PO PRN (18:00)
[2017-07-07 19:20] VITALS: BP 113/62
[2017-07-07] MEDS ORDERED: LIPITOR ONE (19:29)
[2017-07-07] MEDS ORDERED: ZYPREXA ZYDIS ONE (19:29)
[2017-07-07] MEDS: ZYPREXA ZYDIS SL SCH (20:31)
[2017-07-07] MEDS: LIPITOR PO SCH (20:31)
[2017-07-08 07:27] VITALS: BP 110/63
[2017-07-08] MEDS ORDERED: ASPIRIN ONE (08:10)
[2017-07-08] MEDS ORDERED: COLACE PO ONE ×2 (08:10→20:24)
[2017-07-08] MEDS ORDERED: DITROPAN ONE ×2 (08:11→20:25)
[2017-07-08] MEDS ORDERED: ALDACTONE ONE (08:11)
[2017-07-08] MEDS ORDERED: PEPCID ONE ×2 (08:11→20:25)
[2017-07-08] MEDS ORDERED: PROZAC ONE (08:11)
[2017-07-08] MEDS ORDERED: XARELTO ONE (08:12)
[2017-07-08] MEDS ORDERED: ATIVAN ONE ×3 (08:12→20:26)
[2017-07-08] MEDS ORDERED: LASIX ONE (08:14)
[2017-07-08] MEDS: PEPCID PO SCH ×2 (09:14→20:28)
[2017-07-08] MEDS: XARELTO PO SCH (09:14)
[2017-07-08] MEDS: ASPIRIN PO SCH (09:14)
[2017-07-08] MEDS: COLACE PO SCH ×2 (09:14→20:29)
[2017-07-08] MEDS: ATIVAN PO SCH ×3 (09:14→20:28)
[2017-07-08] MEDS: ALDACTONE PO SCH (09:14)
[2017-07-08] MEDS: PROZAC PO SCH (09:14)
[2017-07-08] MEDS: DITROPAN PO SCH ×2 (09:14→20:28)
[2017-07-08] MEDS: LASIX PO SCH (09:15)
[2017-07-08] MEDS: COREG PO SCH ×2 (09:15→20:29)
[2017-07-08] MEDS ORDERED: OLAN5TAB5 SL (10:50)
[2017-07-08] MEDS ORDERED: FLUO20CA8 PO (10:50)
[2017-07-08] MEDS ORDERED: LORA-447 PO (10:50)
[2017-07-08] MEDS ORDERED: ZANAFLEX ONE (10:51)
[2017-07-08] MEDS: ZANAFLEX PO PRN (11:53)
[2017-07-08] MEDS ORDERED: ULTRAM ONE (18:29)
[2017-07-08] MEDS: ULTRAM PO PRN (18:32)
[2017-07-08 20:00] VITALS: BP 106/62
[2017-07-08] MEDS ORDERED: ZYPREXA ZYDIS ONE (20:25)
[2017-07-08] MEDS ORDERED: COREG ONE (20:25)
[2017-07-08] MEDS ORDERED: LIPITOR ONE (20:26)
[2017-07-08] MEDS: LIPITOR PO SCH (20:28)
[2017-07-08] MEDS: ZYPREXA ZYDIS SL SCH (20:28)
[2017-07-09 06:58] VITALS: BP 125/66
--- NOTE | 2017-07-09 08:41 | PNH ---
DATE: 07/06/2017 PSYCHIATRIC PROGRESS NOTE TIME: 1:20-1:40 HISTORY OF PRESENT ILLNESS: The patient is a 77-year-old female with a long history of schizophrenia and depression. The patient was admitted on this occasion catatonic with auditory hallucinations, delusional thought, ideas of reference, thought broadcasting and insertion, depressed mood, disturbed sleep, appetite, energy and concentration, feelings of hopelessness, helplessness, worthlessness. The patient is showing improvement at this point, although remains a candidate for ongoing hospitalization. OBJECTIVE: VITAL SIGNS: Blood pressure 121/87, pulse 79, temperature 98.1, oxygen saturation 93%, respirations 16. REVIEW OF SYSTEMS: HEENT: Normal. RESPIRATORY: No shortness of breath, coughing, or wheezing. CARDIAC: No chest pain or palpitations. GASTROINTESTINAL: No nausea, vomiting, diarrhea or constipation. GENITOURINARY: No difficulty with urination. EXTREMITIES: No swelling or edema. MUSCULOSKELETAL: No muscle pain. NEUROLOGIC: Normal. ENDOCRINE: Normal. MENTAL STATUS EXAMINATION: Reveals an alert female. Decreased psychomotor activity. Concentration and memory are improving. Speech and language are normal. Orientation is full. Intelligence is average. Mood assessed as mildly depressed. Affect somewhat constricted. Insight and judgment improving, decreasing psychotic symptoms. ASSESSMENT AND PLAN: DIAGNOSES: AXIS I: 1. Schizophrenia. 2. Major depressive disorder. AXIS II: Deferred. AXIS III: Refer to past medical history. TREATMENT PLAN: 1. This patient was admitted to the [facility] representing a danger or risk to herself and others. The patient is being observed closely. 2. She has been placed on medications, specifically Prozac 20 mg a day, Zyprexa 15 mg a day, Ativan 0.5 mg 3 times a day, reduced due to sedation. 3. She is participating in groups, therapies and activities. 4. The patient will be discharged back to an outpatient setting when it is felt she no longer represents any risk or danger to herself or others Piotr Scanlon MD DR: JAMAL/mikayla JOB# [id number]
--- NOTE | 2017-07-09 08:45 | PNH ---
DATE: 07/08/2017 PSYCHIATRIC PROGRESS NOTE TIME: 2:20-2:40. HISTORY OF PRESENT ILLNESS: The patient is a 77-year-old female with a very long history of schizophrenia and major depression. The patient presented on this occasion with severe psychotic symptoms and catatonic symptoms. The patient with positive hallucinations, delusional thought, paranoia, depressed mood, disturbed sleep, appetite, energy and concentration. The patient is showing improvement at this point with increased interactive ability, decreased depressive symptoms, decreased psychotic symptoms. Compliant with all medications and therapies. Based on this, it is likely this patient will be discharged in the morning. OBJECTIVE: VITAL SIGNS: Blood pressure 110/63, pulse 61, respiration 18, temperature 98.2, oxygen saturation 93%. REVIEW OF SYSTEMS: HEENT: Normal. RESPIRATORY: No shortness of breath, coughing or wheezing. CARDIAC: No chest pain or palpitations. GASTROINTESTINAL: No nausea, vomiting, diarrhea or constipation. GENITOURINARY: No difficulty urinating. EXTREMITIES: No swelling or edema. MUSCULOSKELETAL: No muscle pain. NEUROLOGIC: Normal. ENDOCRINE: Normal. MENTAL STATUS EXAMINATION: Reveals alert female with some decreased psychomotor activity. Concentration and memory intact. Speech and language are normal. Orientation full. Intelligence is average. Mood assessed as depressed. Affect constricted. Insight and judgment fair. Thought, decreasing psychotic symptoms. ASSESSMENT AND PLAN: DIAGNOSES: AXIS I: 1. Schizophrenia. 2. Major depressive disorder. AXIS II: Deferred. AXIS III: Refer to past medical history. TREATMENT PLAN: 1. This patient was admitted to the [facility] and being observed closely. 2. She has been placed on medications, specifically Ativan 0.5 mg 3 times a day, Prozac 20 mg a day, Zyprexa 15 mg a day. 3. She is participating in groups, therapies and activities. 4. She likely will be discharged in the morning back to home with comprehensive outpatient psychiatric care. Piotr Scanlon MD DR: JAMAL/mikayla JOB# [id number]
[2017-07-09] MEDS ORDERED: COREG ONE (09:07)
[2017-07-09] MEDS ORDERED: ZANAFLEX ONE (09:07)
[2017-07-09] MEDS ORDERED: COLACE PO ONE (09:07)
[2017-07-09] MEDS ORDERED: ASPIRIN ONE (09:08)
[2017-07-09] MEDS ORDERED: PROZAC ONE (09:08)
[2017-07-09] MEDS ORDERED: ALDACTONE ONE (09:08)
[2017-07-09] MEDS ORDERED: DITROPAN ONE (09:08)
[2017-07-09] MEDS ORDERED: ATIVAN ONE (09:09)
[2017-07-09] MEDS ORDERED: PEPCID ONE (09:09)
[2017-07-09] MEDS ORDERED: XARELTO ONE (09:09)
[2017-07-09] MEDS ORDERED: LASIX ONE (09:09)
[2017-07-09] MEDS: ZANAFLEX PO PRN (09:11)
[2017-07-09] MEDS: ALDACTONE PO SCH (09:11)
[2017-07-09] MEDS: COREG PO SCH (09:11)
[2017-07-09] MEDS: ASPIRIN PO SCH (09:11)
[2017-07-09] MEDS: COLACE PO SCH (09:12)
[2017-07-09] MEDS: XARELTO PO SCH (09:12)
[2017-07-09] MEDS: PEPCID PO SCH (09:12)
[2017-07-09] MEDS: DITROPAN PO SCH (09:12)
[2017-07-09] MEDS: PROZAC PO SCH (09:12)
[2017-07-09] MEDS: LASIX PO SCH (09:12)
[2017-07-09] MEDS: ATIVAN PO SCH (09:13)
[2017-07-09 11:00] VITALS: BP 110/63
--- NOTE | 2017-07-10 11:58 | DSH ---
DATE OF DISCHARGE: 07/09/2017 HOSPITAL COURSE: The patient is a 77-year-old female with long history of schizophrenia, also some depression. The patient presented on this occasion in a catatonic state, mute, unresponsive, actively psychotic with delusional thought, paranoia, auditory hallucinations. Depressed mood, disturbed sleep, appetite, energy and concentration. She has been treated on an outpatient basis and this was not effective. The patient was admitted to the hospital and placed on medications, specifically Zyprexa 15 mg, Prozac 20 and Ativan 0.5 mg 3 times a day. On these medications and with the therapies, the patient showed significant improvement and resolution of all catatonia, decreased psychotic symptoms, improved mood, interacting with other clients and staff. The patient did very well. Based on this, it was felt she had reached the end point of her inpatient treatment and can be safely and appropriately discharged to home. ASSESSMENT AND PLAN: DIAGNOSES: AXIS I: 1. Schizophrenia: 2. Depression. AXIS II: Deferred. AXIS III: Refer to past medical history. DISCHARGE TREATMENT PLAN: 1. This patient is to be discharged to home and will be following up with [facility]. 2. She will remain on medications as outlined above. 3. She will receive all of her medications and therapy on an outpatient basis. 4. She has good prognosis at this point and represents no risk or danger to herself or others. Piotr Scanlon MD DR: JAMAL/mikayla JOB# [id number]
== END 2017-07-09 11:00 | disposition home or self-care (01) | DRG 885 ==
LOC: EEVIPCON 19:15 → GP 19:15 → SUR 07-05 14:27 → EDPENDDISTM 07-09 11:00
PROVIDERS: ADMIT Psychiatry & Neurology Psychiatry; ATTEND Psychiatry & Neurology Psychiatry
DX: F20.0 Paranoid schizophrenia (principal); E86.0 Dehydration; J44.9 Chronic obstructive pulmonary disease, unspecified; N39.0 Urinary tract infection, site not specified; I10 Essential (primary) hypertension; F32.9 Major depressive disorder, single episode, unspecified; E78.5 Hyperlipidemia, unspecified; F41.1 Generalized anxiety disorder; G47.9 Sleep disorder, unspecified; I25.10 Atherosclerotic heart disease of native coronary artery without angina pectoris; N32.81 Overactive bladder; G89.29 Other chronic pain; Z79.01 Long term (current) use of anticoagulants; Z79.82 Long term (current) use of aspirin; Z79.899 Other long term (current) drug therapy; Z81.8 Family history of other mental and behavioral disorders
CPT/HCPCS: 36415; 80048; 80061; 81000; 83036; 85027; 87077; 87086; 87186; 97150; 97166; J3490; G8987; G8988